=== PATIENT | female | born 1950 | race African-American/Black ===

== ENCOUNTER 2017-06-28 22:14 | Inpatient (IN) ==
[2017-06-28] MEDS ORDERED: ASPIRIN 325 MG TABLET PO STA (22:53)
[2017-06-28] MEDS ORDERED: MORPHINE 2 MG/1 ML SYRINGE IV STA (22:53)
[2017-06-28] MEDS ORDERED: ONDANSETRON 4 MG/2 ML VIAL IV STA (22:53)
[2017-06-28] MEDS ORDERED: ASPIRIN 325 MG TABLET ONE (23:02)
[2017-06-28] MEDS ORDERED: ONDANSETRON 4 MG/2 ML VIAL ONE (23:02)
[2017-06-28] MEDS ORDERED: MORPHINE 2 MG/1 ML SYRINGE ONE (23:02)
[2017-06-28 23:24] LABS: Basophils % 0.3 % (0.0-0.8); Eosinophils # 0.1 10*3/uL (0.0-0.87); Eosinophils % 0.5 % (0.00-10.9); Hematocrit 40.5 VOL% (35.7-47.0); Hemoglobin 13.3 GM/DL (12.0-16.0); Immature Granulocytes % 0.7 %; Lymphocytes # 1.1 10*3/uL (1.4-4.0); Lymphocytes % 8.5 % (21.3-54.2); Mean Corpuscular HGB Conc 32.8 GM/DL (32-36); Mean Corpuscular Hemoglobin 26 PG (27-34); Mean Corpuscular Volume 80.5 FL (87-102); Mean Platelet Volume 9.7 FL (9.6-12.0); Monocytes # 1.1 10*3/uL (0.11-0.8); Monocytes % 8.3 % (1.7-12.7); Neutrophils % 81.7 % (38.7-73.9); Platelet Count 294 T/CUMM (130-400); Red Blood Count 5.03 MC/CUMM (3.8-5.5); White Blood Count 13.4 T/CUMM (4-12)
[2017-06-28 23:48] LABS: Calcium 8.8 MG/DL (8.5-10.1); Osmolality,Calculated 277.5 MOS/KG (273-304); Potassium 3.4 MMOL/L (3.5-5.1)
[2017-06-28 23:51] LABS: Albumin 2.7 G/DL (3.4-5.0); Bilirubin,Direct 0.39 MG/DL (0.0-0.20); Bilirubin,Indirect 0.4 MG/DL (0.0-1.0); Bilirubin,Total 0.8 MG/DL (0.2-1.0); Total Protein 7.2 G/DL (6.4-8.3)
[2017-06-29] MEDS ORDERED: SODIUM CHLORIDE 0.9% 1,000 ML IV STA (00:08)
[2017-06-29] MEDS ORDERED: PIPERACILLIN/TAZOBACTAM 3,375 MG in SODIUM CHLORIDE 0.9% 100 ML IV STA (00:09)
[2017-06-29] MEDS ORDERED: PIPERACILLIN/TAZOBACTAM 3,375 MG VIAL IV ONE (00:11)
[2017-06-29] MEDS ORDERED: SODIUM CHLORIDE 0.9% 100 ML IV ONE (00:11)
[2017-06-29] MEDS ORDERED: MORPHINE 2 MG/1 ML SYRINGE IV STA (00:52)
[2017-06-29] MEDS ORDERED: FUROSEMIDE 20 MG/2 ML VIAL ONE (01:04)
[2017-06-29] MEDS ORDERED: methylPREDNISolone SOD SUC 125 MG/2 ML VIAL ONE (01:04)
[2017-06-29] MEDS ORDERED: cefTRIAXone 1,000 MG VIAL ONE (01:04)
[2017-06-29] MEDS ORDERED: MORPHINE 2 MG/1 ML SYRINGE ONE (01:14)
[2017-06-29] MEDS ORDERED: ONDANSETRON 4 MG/2 ML VIAL IV PRN (04:43)
[2017-06-29] MEDS: DEXTROSE 5% NACL 0.9% 1,000 ML IV SCH (05:29)
[2017-06-29] MEDS: metroNIDAZOLE INJ 500 MG in PREMIX 1 EACH IV SCH ×3 (05:29→23:20)
[2017-06-29] MEDS ORDERED: VANCOMYCIN INJ 1,250 MG in SODIUM CHLORIDE 0.45% 250 ML IV SCH (06:00)
[2017-06-29] MEDS ORDERED: CEFEPIME 2,000 MG in SYRINGE 1 EACH IV SCH (06:00)
[2017-06-29 08:22] LABS: Apearance,Urine Slightly Hazy (Clear); Bilirubin,Urine Negative (Negative); Blood, Urine Negative (Negative); Glucose,Urine (UA) Negative (Negative); Hyaline Casts,Urine 1 /LPF (0-3); Ketones,Urine 80 mg/dL (Negative); Mucus,Urine Few /LPF (Occasional); Nitrite,Urine Negative (Negative); Protein,Urine 30 MG/DL; RBC,Urine 8 /HPF (0-4); Squamous Epithelial Cell,Urine Occasional /HPF (0-10); Urine Color Amber (Yellow); Urine Specific Gravity 1.029 (1.001-1.035); WBC,Urine 2 /HPF (0-6)
[2017-06-29] MEDS: hydroCHLOROthiazide 12.5 MG CAPSULE PO SCH (09:38)
[2017-06-29] MEDS: amLODIPine 5 MG TABLET PO SCH (09:38)
[2017-06-29] MEDS: DONEPEZIL 10 MG TABLET PO SCH (09:38)
[2017-06-29] MEDS: PIPERACILLIN/TAZOBACTAM 3,375 MG in SODIUM CHLORIDE 0.9% 100 ML IV SCH ×2 (10:23→17:48)
[2017-06-29] MEDS ORDERED: MORPHINE 2 MG/1 ML SYRINGE IV PRN (13:26)
[2017-06-30] MEDS: PIPERACILLIN/TAZOBACTAM 3,375 MG in SODIUM CHLORIDE 0.9% 100 ML IV SCH ×3 (02:24→18:59)
[2017-06-30] MEDS: DEXTROSE 5% NACL 0.9% 1,000 ML IV SCH ×3 (03:45→10:02)
[2017-06-30 07:32] LABS: Albumin 2.1 G/DL (3.4-5.0); Calcium 8.3 MG/DL (8.5-10.1); Osmolality,Calculated 280.1 MOS/KG (273-304); Potassium 3.4 MMOL/L (3.5-5.1); Total Protein 5.9 G/DL (6.4-8.3)
[2017-06-30] MEDS: metroNIDAZOLE INJ 500 MG in PREMIX 1 EACH IV SCH ×3 (07:40→22:32)
[2017-06-30] MEDS ORDERED: POTASSIUM CHLORIDE 20 MEQ TABLET PO ONE (08:48)
[2017-06-30] MEDS: DONEPEZIL 10 MG TABLET PO SCH (10:15)
[2017-06-30] MEDS: hydroCHLOROthiazide 12.5 MG CAPSULE PO SCH (10:15)
[2017-06-30] MEDS: amLODIPine 5 MG TABLET PO SCH (10:16)
[2017-07-01] MEDS: PIPERACILLIN/TAZOBACTAM 3,375 MG in SODIUM CHLORIDE 0.9% 100 ML IV SCH ×3 (01:35→17:25)
[2017-07-01] MEDS: DEXTROSE 5% NACL 0.9% 1,000 ML IV SCH ×3 (02:02→16:37)
[2017-07-01 05:11] LABS: Basophils # 0.1 10*3/uL (0.0-0.2); Eosinophils # 0.2 10*3/uL (0.0-0.87); Eosinophils % 2.6 % (0.00-10.9); Hematocrit 41.8 VOL% (35.7-47.0); Hemoglobin 13.8 GM/DL (12.0-16.0); Immature Granulocytes % 2.5 %; Immature Granulocytes Absolute 0.17 #; Lymphocytes # 2.9 10*3/uL (1.4-4.0); Lymphocytes % 42.1 % (21.3-54.2); Mean Corpuscular Hemoglobin 26 PG (27-34); Mean Corpuscular Volume 79.9 FL (87-102); Monocytes # 0.7 10*3/uL (0.11-0.8); Monocytes % 10.4 % (1.7-12.7); Neutrophils # 2.9 10*3/uL (1.4-7.4); Neutrophils % 41.4 % (38.7-73.9); Platelet Count 372 T/CUMM (130-400); Red Blood Count 5.23 MC/CUMM (3.8-5.5); Red Cell Distribution Width 16.3 % (9.3-17.3); White Blood Count 6.9 T/CUMM (4-12)
[2017-07-01 05:39] LABS: Calcium 8.7 MG/DL (8.5-10.1); Magnesium 2.5 MG/DL (1.8-2.4)
[2017-07-01] MEDS: metroNIDAZOLE INJ 500 MG in PREMIX 1 EACH IV SCH (06:43)
[2017-07-01] MEDS: amLODIPine 5 MG TABLET PO SCH (09:34)
[2017-07-01] MEDS: CIPROFLOXACIN 500 MG TABLET PO SCH ×2 (09:34→20:36)
[2017-07-01] MEDS: DONEPEZIL 10 MG TABLET PO SCH (09:34)
[2017-07-01] MEDS: metroNIDAZOLE 500 MG TABLET PO SCH ×3 (09:34→20:36)
[2017-07-01] MEDS: hydroCHLOROthiazide 12.5 MG CAPSULE PO SCH (09:34)
[2017-07-02] MEDS: PIPERACILLIN/TAZOBACTAM 3,375 MG in SODIUM CHLORIDE 0.9% 100 ML IV SCH ×2 (01:14→10:34)
[2017-07-02] MEDS: DEXTROSE 5% NACL 0.9% 1,000 ML IV SCH ×2 (05:43→08:27)
[2017-07-02] MEDS: CIPROFLOXACIN 500 MG TABLET PO SCH (08:23)
[2017-07-02] MEDS: amLODIPine 5 MG TABLET PO SCH (08:24)
[2017-07-02] MEDS: hydroCHLOROthiazide 12.5 MG CAPSULE PO SCH (08:24)
[2017-07-02] MEDS: metroNIDAZOLE 500 MG TABLET PO SCH (08:24)
[2017-07-02 11:52] VITALS: BP 138/75
== END 2017-07-02 12:35 | disposition home or self-care (01) | DRG 392 ==
LOC: N.ED 22:14 → SUATTDRO 06-29 02:39 → N.EDINP 06-29 02:39 → N.3E 06-29 03:01
PROVIDERS: ADMIT Internal Medicine; ATTEND Internal Medicine Geriatric Medicine

== ENCOUNTER 2018-05-02 05:24 | Inpatient (IN) ==
[2018-05-02] MEDS ORDERED: VANCOMYCIN INJ 1,000 MG in SODIUM CHLORIDE 0.9% 250 ML IV ONE (06:00)
[2018-05-02] MEDS ORDERED: ceFAZolin 1,000 MG in SYRINGE 1 EACH IV ONE (06:00)
[2018-05-02] MEDS ORDERED: PANTOPRAZOLE 40 MG TABLET PO ONE ×2 (06:55→10:25)
[2018-05-02] MEDS ORDERED: DIAZEPAM 5 MG TABLET PO ONE (06:55)
[2018-05-02] MEDS ORDERED: VANCOMYCIN 1,000 MG VIAL ONE (07:59)
[2018-05-02] MEDS ORDERED: ceFAZolin 1,000 MG VIAL ONE (07:59)
[2018-05-02] MEDS ORDERED: FAMOTIDINE 20 MG TABLET ONE (08:12)
[2018-05-02] MEDS ORDERED: DIAZEPAM 5 MG TABLET ONE (08:12)
[2018-05-02] MEDS: LACTATED RINGERS 1,000 ML IV SCH (08:17)
[2018-05-02] MEDS ORDERED: BISACODYL 10 MG SUPP RECTAL PRN (08:39)
[2018-05-02] MEDS ORDERED: LACTULOSE 20 GM/30 ML UDCUP PO PRN (08:39)
[2018-05-02] MEDS ORDERED: diphenhydrAMINE CAP 25 MG CAPSULE PO PRN (08:39)
[2018-05-02] MEDS ORDERED: MORPHINE 4 MG/1 ML VIAL IV PRN ×3 (08:39→11:29)
[2018-05-02] MEDS ORDERED: PROMETHAZINE 25 MG/1 ML VIAL IM PRN (08:39)
[2018-05-02] MEDS ORDERED: NALOXONE 0.4 MG/ML VIAL IV PRN (08:39)
[2018-05-02] MEDS ORDERED: MAGNESIUM HYDROXIDE SUSP 30 ML UDCUP PO PRN (08:39)
[2018-05-02] MEDS ORDERED: MIDAZOLAM 2 MG/2 ML VIAL ONE (09:04)
[2018-05-02] MEDS ORDERED: ROPIVACAINE 0.5% 30 ML VIAL ONE (09:04)
[2018-05-02] MEDS ORDERED: BUPIVACAINE SPINAL 0.75% 2 ML AMP SPINAL ONE (09:31)
[2018-05-02] MEDS ORDERED: TRANEXAMIC ACID 1,000 MG/10 ML VIAL ONE (10:13)
[2018-05-02] MEDS ORDERED: PROPOFOL 200 MG/20 ML VIAL IV ONE (11:21)
[2018-05-02] MEDS ORDERED: KETAMINE 500 MG/10 ML VIAL ONE (11:22)
[2018-05-02] MEDS ORDERED: GLYCOPYRROLATE 0.4 MG/2 ML VIAL ONE (11:22)
[2018-05-02] MEDS ORDERED: fentaNYL 100 MCG/2 ML VIAL ONE (11:22)
[2018-05-02] MEDS ORDERED: ONDANSETRON 4 MG/2 ML VIAL ONE (11:22)
[2018-05-02] MEDS ORDERED: SODIUM CHLORIDE 0.9% 100 ML IV ONE (11:23)
[2018-05-02] MEDS ORDERED: ACETAMINOPHEN 1,000 MG/100 ML VIAL IV ONE (11:23)
[2018-05-02] MEDS ORDERED: MORPHINE PCA 30 MG/30 ML SYRINGE IV ONE (11:31)
[2018-05-02] MEDS: MORPHINE PCA 30 MG/30 ML SYRINGE IV SCH (11:41)
[2018-05-02] MEDS: MEMANTINE 10 MG TABLET PO SCH (14:30)
[2018-05-02] MEDS: amLODIPine 5 MG TABLET PO SCH ×2 (14:30→14:35)
[2018-05-02] MEDS: hydroCHLOROthiazide 12.5 MG CAPSULE PO SCH (14:30)
[2018-05-02] MEDS: DONEPEZIL 10 MG TABLET PO SCH ×3 (14:30→21:08)
[2018-05-02] MEDS: DOCUSATE SODIUM 100 MG CAPSULE PO SCH ×2 (14:35→21:08)
[2018-05-02] MEDS: NABUMETONE 500 MG TABLET PO SCH ×2 (14:35→21:08)
[2018-05-02] MEDS: ONDANSETRON 4 MG/2 ML VIAL IV PRN ×2 (16:15→21:13)
[2018-05-02] MEDS ORDERED: TEMAZEPAM 7.5 MG CAPSULE PO PRN (21:00)
[2018-05-02] MEDS: FONDAPARINUX 2.5 MG/0.5 ML SYRINGE SUBCUT SCH (21:07)
[2018-05-03 04:06] LABS: Basophils % 0.2 % (0.0-0.8); Hematocrit 40.8 VOL% (35.7-47.0); Immature Granulocytes % 0.8 %; Immature Granulocytes Absolute 0.09 #; Lymphocytes # 0.8 10*3/uL (1.4-4.0); Lymphocytes % 7.3 % (21.3-54.2); Mean Corpuscular HGB Conc 31.9 GM/DL (32-36); Mean Corpuscular Hemoglobin 26 PG (27-34); Mean Corpuscular Volume 82.6 FL (87-102); Mean Platelet Volume 10.6 FL (9.6-12.0); Monocytes # 0.7 10*3/uL (0.11-0.8); Monocytes % 6.4 % (1.7-12.7); Neutrophils # 9.5 10*3/uL (1.4-7.4); Neutrophils % 85.3 % (38.7-73.9); Platelet Count 174 T/CUMM (130-400); Red Blood Count 4.94 MC/CUMM (3.8-5.5); White Blood Count 11.1 T/CUMM (4-12)
[2018-05-03 04:19] LABS: Calcium 8.3 MG/DL (8.5-10.1); Osmolality,Calculated 284.3 MOS/KG (273-304); Potassium 3.9 MMOL/L (3.5-5.1)
[2018-05-03] MEDS: ONDANSETRON 4 MG/2 ML VIAL IV PRN ×2 (08:48→12:55)
[2018-05-03] MEDS: DOCUSATE SODIUM 100 MG CAPSULE PO SCH ×2 (08:53→20:59)
[2018-05-03] MEDS: hydroCHLOROthiazide 12.5 MG CAPSULE PO SCH (08:53)
[2018-05-03] MEDS: NABUMETONE 500 MG TABLET PO SCH ×2 (08:53→20:59)
[2018-05-03] MEDS: MEMANTINE 10 MG TABLET PO SCH (08:53)
[2018-05-03] MEDS: amLODIPine 5 MG TABLET PO SCH (08:53)
[2018-05-03] MEDS: LACTATED RINGERS 1,000 ML IV SCH (12:30)
[2018-05-03] MEDS: FONDAPARINUX 2.5 MG/0.5 ML SYRINGE SUBCUT SCH (20:59)
[2018-05-03] MEDS: DONEPEZIL 10 MG TABLET PO SCH (21:00)
[2018-05-04] MEDS: DOCUSATE SODIUM 100 MG CAPSULE PO SCH ×2 (08:03→20:41)
[2018-05-04] MEDS: amLODIPine 5 MG TABLET PO SCH (08:03)
[2018-05-04] MEDS: NABUMETONE 500 MG TABLET PO SCH ×2 (08:04→20:41)
[2018-05-04] MEDS: MEMANTINE 10 MG TABLET PO SCH (08:04)
[2018-05-04] MEDS: hydroCHLOROthiazide 12.5 MG CAPSULE PO SCH (08:04)
[2018-05-04] MEDS: LACTATED RINGERS 1,000 ML IV SCH (09:04)
[2018-05-04] MEDS: MORPHINE PCA 30 MG/30 ML SYRINGE IV SCH (11:41)
[2018-05-04] MEDS: FONDAPARINUX 2.5 MG/0.5 ML SYRINGE SUBCUT SCH (20:41)
[2018-05-04] MEDS: DONEPEZIL 10 MG TABLET PO SCH (20:41)
[2018-05-05] MEDS: MEMANTINE 10 MG TABLET PO SCH (08:01)
[2018-05-05] MEDS: NABUMETONE 500 MG TABLET PO SCH (08:01)
[2018-05-05] MEDS: DOCUSATE SODIUM 100 MG CAPSULE PO SCH (08:01)
[2018-05-05] MEDS: amLODIPine 5 MG TABLET PO SCH (08:01)
[2018-05-05] MEDS: hydroCHLOROthiazide 12.5 MG CAPSULE PO SCH (08:01)
[2018-05-05] MEDS ORDERED: INFLUENZA VIRUS VACCINE 0.5 ML SYRINGE IM ONE (11:11)
[2018-05-05 11:17] VITALS: BP 128/84
== END 2018-05-05 11:45 | disposition home health service (06) | DRG 470 ==
LOC: N.OR 05:24 → N.SDSINP 05:25 → N.3E 08:39 → N.OR 09:49 → N.3E 10:31
PROVIDERS: ADMIT Orthopaedic Surgery; ATTEND Orthopaedic Surgery

== ENCOUNTER 2019-04-12 05:43 | Inpatient (IN) ==
[2019-04-12] MEDS ORDERED: VANCOMYCIN 1,000 MG VIAL ONE (05:52)
[2019-04-12] MEDS ORDERED: ceFAZolin 1,000 MG VIAL ONE (05:52)
[2019-04-12] MEDS ORDERED: VANCOMYCIN INJ 1,000 MG in SODIUM CHLORIDE 0.9% 250 ML IV ONE (06:00)
[2019-04-12] MEDS ORDERED: ceFAZolin 1,000 MG in SYRINGE 1 EACH IV ONE (06:00)
[2019-04-12] MEDS ORDERED: TRANEXAMIC ACID 1,000 MG/10 ML VIAL ONE (06:40)
[2019-04-12] MEDS ORDERED: ACETAMINOPHEN 500 MG TABLET PO ONE (07:04)
[2019-04-12] MEDS ORDERED: GABAPENTIN 400 MG CAPSULE PO ONE (07:04)
[2019-04-12] MEDS ORDERED: DIAZEPAM 5 MG TABLET PO ONE (07:04)
[2019-04-12] MEDS ORDERED: FAMOTIDINE 20 MG TABLET PO ONE (07:04)
[2019-04-12] MEDS ORDERED: ACETAMINOPHEN 500 MG TABLET ONE (07:05)
[2019-04-12] MEDS ORDERED: GABAPENTIN 400 MG CAPSULE ONE (07:05)
[2019-04-12] MEDS ORDERED: FAMOTIDINE 20 MG TABLET ONE (07:05)
[2019-04-12] MEDS ORDERED: DIAZEPAM 5 MG TABLET ONE (07:07)
[2019-04-12] MEDS ORDERED: EPINEPHrine 1 MG/ML VIAL ONE (07:11)
[2019-04-12] MEDS ORDERED: BUPIVACAINE SPINAL 0.75% 2 ML AMP SPINAL ONE (07:11)
[2019-04-12] MEDS ORDERED: DEXAMETHASONE 4 MG/1 ML VIAL ONE ×2 (07:11→10:04)
[2019-04-12] MEDS ORDERED: ROPIVACAINE 0.5% 30 ML VIAL ONE (07:11)
[2019-04-12] MEDS ORDERED: LACTATED RINGERS 1,000 ML IV SCH (07:30)
[2019-04-12] MEDS ORDERED: LACTULOSE 20 GM/30 ML UDCUP PO PRN (09:47)
[2019-04-12] MEDS ORDERED: TEMAZEPAM 7.5 MG CAPSULE PO PRN (09:47)
[2019-04-12] MEDS ORDERED: diphenhydrAMINE CAP 25 MG CAPSULE PO PRN (09:47)
[2019-04-12] MEDS ORDERED: BISACODYL 10 MG SUPP RECTAL PRN (09:47)
[2019-04-12] MEDS ORDERED: MORPHINE 4 MG/1 ML VIAL IV PRN (09:47)
[2019-04-12] MEDS ORDERED: PROMETHAZINE 25 MG/1 ML VIAL IM PRN (09:47)
[2019-04-12] MEDS ORDERED: PROPOFOL 200 MG/20 ML VIAL IV ONE (10:03)
[2019-04-12] MEDS ORDERED: SEVOFLURANE 1 UNIT/15 MINUTE INH ONE (10:03)
[2019-04-12] MEDS ORDERED: fentaNYL 100 MCG/2 ML VIAL ONE (10:04)
[2019-04-12] MEDS ORDERED: KETOROLAC 30 MG/1 ML VIAL ONE (10:04)
[2019-04-12] MEDS ORDERED: LACTATED RINGERS 1,000 ML IV ONE (10:04)
[2019-04-12] MEDS ORDERED: SODIUM CHLORIDE 0.9% 250 ML IV ONE (10:04)
[2019-04-12] MEDS ORDERED: SODIUM CHLORIDE 0.9% 100 ML IV ONE (10:04)
[2019-04-12] MEDS ORDERED: MIDAZOLAM 2 MG/2 ML VIAL ONE (10:04)
[2019-04-12] MEDS ORDERED: HYDROmorphone 2 MG/1 ML VIAL ONE (10:18)
[2019-04-12] MEDS ORDERED: ONDANSETRON 4 MG/2 ML VIAL IV PRN (10:19)
[2019-04-12] MEDS: HYDROmorphone 2 MG/1 ML VIAL IV PRN ×2 (10:20→10:25)
[2019-04-12] MEDS: ceFAZolin 2,000 MG in PREMIX 1 EACH IV SCH (17:30)
[2019-04-12] MEDS ORDERED: FONDAPARINUX 2.5 MG/0.5 ML SYRINGE SUBCUT SCH (20:00)
[2019-04-12] MEDS: NABUMETONE 500 MG TABLET PO SCH (20:55)
[2019-04-12] MEDS: MEMANTINE 10 MG TABLET PO SCH (20:55)
[2019-04-12] MEDS: DONEPEZIL 10 MG TABLET PO SCH (20:55)
[2019-04-12] MEDS: DOCUSATE SODIUM 100 MG CAPSULE PO SCH (20:55)
[2019-04-13] MEDS: ceFAZolin 2,000 MG in PREMIX 1 EACH IV SCH (00:40)
[2019-04-13 06:28] LABS: Basophils % 0.3 % (0.0-0.8); Hematocrit 38.4 VOL% (35.7-47.0); Hemoglobin 11.9 GM/DL (12.0-16.0); Immature Granulocytes % 1.1 %; Immature Granulocytes Absolute 0.13 #; Lymphocytes # 1.3 10*3/uL (1.4-4.0); Lymphocytes % 11.1 % (21.3-54.2); Mean Corpuscular Volume 85.9 FL (87-102); Mean Platelet Volume 9.8 FL (9.6-12.0); Neutrophils % 76.5 % (38.7-73.9); Platelet Count 165 T/CUMM (130-400); Red Blood Count 4.47 MC/CUMM (3.8-5.5); Red Cell Distribution Width 15.3 % (9.3-17.3); White Blood Count 11.8 T/CUMM (4-12)
[2019-04-13 06:50] LABS: Calcium 8.5 MG/DL (8.5-10.1); Osmolality,Calculated 283.1 MOS/KG (273-304)
[2019-04-13] MEDS: MEMANTINE 10 MG TABLET PO SCH ×2 (08:56→21:39)
[2019-04-13] MEDS: ASPIRIN EC 81 MG TABLET PO SCH (08:56)
[2019-04-13] MEDS: DOCUSATE SODIUM 100 MG CAPSULE PO SCH ×2 (08:56→21:39)
[2019-04-13] MEDS: hydroCHLOROthiazide 12.5 MG CAPSULE PO SCH (08:57)
[2019-04-13] MEDS: amLODIPine 5 MG TABLET PO SCH (08:57)
[2019-04-13] MEDS: NABUMETONE 500 MG TABLET PO SCH ×2 (08:57→21:39)
[2019-04-13] MEDS: ONDANSETRON 4 MG/2 ML VIAL IV PRN (12:59)
[2019-04-13] MEDS: DONEPEZIL 10 MG TABLET PO SCH (21:38)
[2019-04-14] MEDS: ASPIRIN EC 81 MG TABLET PO SCH (08:50)
[2019-04-14] MEDS: amLODIPine 5 MG TABLET PO SCH (08:51)
[2019-04-14] MEDS: MEMANTINE 10 MG TABLET PO SCH ×2 (08:51→21:45)
[2019-04-14] MEDS: DOCUSATE SODIUM 100 MG CAPSULE PO SCH ×2 (08:51→21:45)
[2019-04-14] MEDS: hydroCHLOROthiazide 12.5 MG CAPSULE PO SCH (08:51)
[2019-04-14] MEDS: NABUMETONE 500 MG TABLET PO SCH ×2 (08:51→21:45)
[2019-04-14] MEDS: ONDANSETRON 4 MG/2 ML VIAL IV PRN (09:29)
[2019-04-14] MEDS: MAGNESIUM HYDROXIDE SUSP 30 ML UDCUP PO PRN (12:55)
[2019-04-14] MEDS: DONEPEZIL 10 MG TABLET PO SCH (21:45)
[2019-04-15 08:09] VITALS: BP 126/56
[2019-04-15] MEDS: NABUMETONE 500 MG TABLET PO SCH (08:23)
[2019-04-15] MEDS: MEMANTINE 10 MG TABLET PO SCH (08:23)
[2019-04-15] MEDS: amLODIPine 5 MG TABLET PO SCH (08:23)
[2019-04-15] MEDS: hydroCHLOROthiazide 12.5 MG CAPSULE PO SCH (08:23)
[2019-04-15] MEDS: DOCUSATE SODIUM 100 MG CAPSULE PO SCH (08:24)
[2019-04-15] MEDS: ASPIRIN EC 81 MG TABLET PO SCH (08:24)
[2019-04-15] MEDS: MAGNESIUM HYDROXIDE SUSP 30 ML UDCUP PO PRN (08:24)
== END 2019-04-15 09:38 | disposition home health service (06) | DRG 470 ==
LOC: N.OR 05:43 → N.SDSINP 05:45 → N.3E 11:32
PROVIDERS: ADMIT Orthopaedic Surgery; ATTEND Orthopaedic Surgery